=== PATIENT | female | born 2000 | race Two or more races ===

== ENCOUNTER 2019-01-18 00:01 | Emergency (ER) | payer SELFPAY ==
[~2019-01-18] VITALS: Ht 160 cm; Wt 77.1 kg
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
--- NOTE | 2019-01-18 01:02 | NUR ---
Patient discharged to home in stable conditon. Written and verbal after care instructions given. Patient verbalizes understanding of instructions. Patient ambulated with stable gait.
[2019-01-18 02:07] VITALS: BP 115/82
== END 2019-01-18 02:08 | disposition home or self-care (01) ==
LOC: ER 00:07
DX: M25.512 Pain in left shoulder (principal); V43.52XA Car driver injured in collision with other type car in traffic accident, initial encounter; Y93.89 Activity, other specified; Y92.89 Other specified places as the place of occurrence of the external cause; Y99.8 Other external cause status
CPT/HCPCS: 73030; A4663